=== PATIENT | male | born 1965 | race Caucasian/White ===

== ENCOUNTER 2017-11-27 11:39 | Day surgery (SDC) | payer BC ==
[~2017-11-27] VITALS: Ht 185.4 cm; Wt 95.3 kg
[2017-11-27] VITALS (10 sets, daily range): BP systolic 97–136; BP diastolic 45–84; PULSE 59–83; TEMP 98.2–98.3
[~2017-11-27 11:39] MED LIST: GLUCOPHAGE500 MG/TAB PO; HCTZ12.5TAB PO; LYRICA 150MG C150 MG PO; MEVACOR10 MG PO; MOBIC 7.5MG7.5 MG PO
[2017-11-27] MEDS ORDERED: CANA100T PO (12:57)
[2017-11-27] MEDS ORDERED: LYRICA 150MG C150 MG PO (12:58)
[2017-11-27] MEDS ORDERED: GLUCOPHAGE1000 MG PO (12:58)
[2017-11-27] MEDS ORDERED: ZESTRIL 5MG5 MG PO (12:59)
[2017-11-27] MEDS ORDERED: MEVACOR10 MG PO (12:59)
[2017-11-27] MEDS ORDERED: ASPIRIN 81M81 MG/TA2 PO (13:00)
[2017-11-27] MEDS ORDERED: HCTZ 25MG TAB25 MG PO (13:00)
[2017-11-27] MEDS ORDERED: ULTRAM 50MG TAB50 MG PO (13:01)
[2017-11-27] MEDS ORDERED: PRILOSEC 20MG20 MG PO (13:01)
[2017-11-27] MEDS ORDERED: FLOMAX 0.40.4 MG/CAP PO (13:02)
[2017-11-27] MEDS ORDERED: REVATIO20 MG PO (13:02)
[2017-11-27] MEDS ORDERED: COLACE 100100 MG/CAP PO (13:03)
[2017-11-28 02:01] VITALS: BP 109/64; PULSE 90; TEMP 97.2
[2017-11-28 04:47] VITALS: BP 135/68; PULSE 64; TEMP 97.8
[2017-11-28 10:03] VITALS: BP 114/73; PULSE 73; TEMP 98.4
== END 2017-11-28 11:52 | disposition home or self-care (01) ==
LOC: SDCO 11:39 → SURG 19:03 → SDCO 11-28 11:52
DX: N21.0 Calculus in bladder (principal); N52.9 Male erectile dysfunction, unspecified; E11.40 Type 2 diabetes mellitus with diabetic neuropathy, unspecified; K21.9 Gastro-esophageal reflux disease without esophagitis; K76.0 Fatty (change of) liver, not elsewhere classified; E78.5 Hyperlipidemia, unspecified; I10 Essential (primary) hypertension; Z87.442 Personal history of urinary calculi; Z79.84 Long term (current) use of oral hypoglycemic drugs; Z80.1 Family history of malignant neoplasm of trachea, bronchus and lung; Z84.1 Family history of disorders of kidney and ureter
CPT/HCPCS: OP; J0690; J1100; J1885; J2405; J2704; J2765; J3010; J7030; J7040